=== PATIENT | female | born 1965 | race Native Hawaiian/Other Pacific Islander ===

== ENCOUNTER 2021-05-01 12:19 | Outpatient (CLI) | payer OTHER | END 2021-05-01 21:49 | disposition home or self-care (01) | LOC: RAD 12:19 | PROVIDERS: ATTEND Nurse Practitioner Family | DX: R05 Cough (principal) ==

== ENCOUNTER 2021-05-03 09:53 | Inpatient (IN) | payer OTHER ==
[~2021-05-03] VITALS: Ht 170.2 cm; Wt 80.4 kg
[2021-05-03 10:16] VITALS: BP 89/51; TEMP 99.7
[2021-05-03 11:32] LABS: PLATELET COUNT 177 K/uL (152-353)
[2021-05-03 11:39] LABS: POTASSIUM 3.2 mmol/L (3.6-5.2)
[2021-05-04 00:10] VITALS: BP 95/56
[2021-05-04 02:43] VITALS: BP 145/80; TEMP 98.7
[2021-05-04 05:33] LABS: PLATELET COUNT 177 K/uL (152-353)
[2021-05-04 05:41] LABS: POTASSIUM 3.8 mmol/L (3.6-5.2)
[2021-05-04 08:00] VITALS: BP 142/86
[2021-05-04 12:00] VITALS: BP 142/92
[2021-05-04 16:00] VITALS: BP 151/92
[2021-05-04 20:00] VITALS: BP 104/65; TEMP 97.4
[2021-05-05] VITALS (11 sets, daily range): BP systolic 90–133; BP diastolic 51–66; TEMP 97.1–98.4; Ht 170.2 cm; Wt 80.4 kg
[2021-05-05 05:00] LABS: PLATELET COUNT 171 K/uL (152-353)
[2021-05-05 05:17] LABS: POTASSIUM 3.9 mmol/L (3.6-5.2)
[2021-05-06] VITALS (10 sets, daily range): BP systolic 85–120; BP diastolic 46–74; TEMP 97.7–98.3
[2021-05-06 07:56] LABS: PLATELET COUNT 220 K/uL (152-353)
[2021-05-06 08:28] LABS: POTASSIUM 4.3 mmol/L (3.6-5.2)
[2021-05-07] VITALS: BP 108/54; TEMP 98.3
[2021-05-07 04:00] VITALS: BP 107/49; TEMP 98.1
[2021-05-07 05:19] LABS: PLATELET COUNT 197 K/uL (152-353)
[2021-05-07 05:44] LABS: POTASSIUM 3.8 mmol/L (3.6-5.2)
[2021-05-07 08:00] VITALS: BP 107/41; TEMP 97.7
[2021-05-07 12:00] VITALS: BP 124/70; TEMP 97.7
[2021-05-07 16:00] VITALS: BP 117/63; TEMP 97.6
[2021-05-07 20:00] VITALS: BP 108/66; TEMP 98.4
[2021-05-08] VITALS: BP 113/65; TEMP 98.1
[2021-05-08 04:00] VITALS: BP 108/54; TEMP 98.2
[2021-05-08 08:00] VITALS: BP 106/62; TEMP 98.3
[2021-05-08 12:00] VITALS: BP 99/56; TEMP 98.3
[2021-05-08 16:00] VITALS: BP 104/55; TEMP 98.7
[2021-05-08 20:00] VITALS: BP 100/72; TEMP 97.6
[2021-05-09 00:10] VITALS: BP 101/51; TEMP 100.4
[2021-05-09 04:00] VITALS: BP 107/56; TEMP 98.7
[2021-05-09 05:56] LABS: PLATELET COUNT 162 K/uL (152-353)
[2021-05-09 06:19] LABS: POTASSIUM 3.4 mmol/L (3.6-5.2)
[2021-05-09 08:00] VITALS: BP 115/63; TEMP 98.9
[2021-05-09 12:00] VITALS: BP 117/56; TEMP 97.8
[2021-05-09 16:00] VITALS: BP 116/61; TEMP 98.3
[2021-05-09 20:00] VITALS: BP 113/62; TEMP 99
[2021-05-10] VITALS (7 sets, daily range): BP systolic 87–141; BP diastolic 44–78; TEMP 97.7–98.9
[2021-05-10 06:32] LABS: PLATELET COUNT 95 K/uL (152-353)
[2021-05-10 06:50] LABS: POTASSIUM 3.6 mmol/L (3.6-5.2)
[2021-05-11 04:23] VITALS: BP 103/59; TEMP 98.1
[2021-05-11 04:44] LABS: PLATELET COUNT 96 K/uL (152-353)
[2021-05-11 08:00] VITALS: BP 99/64; TEMP 98
[2021-05-11 12:00] VITALS: BP 101/67; TEMP 99.5
[2021-05-11 16:00] VITALS: BP 100/55; TEMP 98.1
[2021-05-12 08:18] LABS: PLATELET COUNT 160 K/uL (152-353)
[2021-05-12 08:39] LABS: POTASSIUM 4.2 mmol/L (3.6-5.2)
[2021-05-12 20:00] VITALS: BP 121/58; TEMP 98
[2021-05-13 04:52] LABS: POTASSIUM 4.5 mmol/L (3.6-5.2)
[2021-05-13 07:06] LABS: PLATELET COUNT 138 K/uL (152-353)
[2021-05-13 08:00] VITALS: BP 123/57; TEMP 97.6
[2021-05-13 20:00] VITALS: BP 134/59; TEMP 98.2
[2021-05-14] VITALS: BP 106/47; TEMP 97.7
[2021-05-14 06:09] LABS: POTASSIUM 4.7 mmol/L (3.6-5.2)
[2021-05-14 06:17] LABS: PLATELET COUNT 105 K/uL (152-353)
[2021-05-14 08:00] VITALS: BP 118/61; TEMP 98.1
[2021-05-14 20:00] VITALS: BP 121/63; TEMP 98.8
[2021-05-15 06:23] LABS: PLATELET COUNT 77 K/uL (152-353)
[2021-05-15 08:00] VITALS: BP 115/51; TEMP 98.2
[2021-05-15 12:00] VITALS: BP 128/75; TEMP 99.4
[2021-05-15 16:00] VITALS: BP 132/67; TEMP 97.7
[2021-05-15 20:00] VITALS: BP 120/67; TEMP 98.1
[2021-05-16 00:22] VITALS: BP 123/71; TEMP 98.4
[2021-05-16 04:29] VITALS: BP 109/64; TEMP 98.2
[2021-05-16 08:00] VITALS: BP 123/78; TEMP 98.2
[2021-05-16 12:00] VITALS: BP 112/67; TEMP 97.8
[2021-05-16 16:00] VITALS: BP 133/71; TEMP 98.2
[2021-05-16 20:00] VITALS: BP 104/67; TEMP 98.4
[2021-05-17 08:00] VITALS: BP 110/72; TEMP 98.4
[2021-05-17 12:00] VITALS: BP 117/74; TEMP 97.5
[2021-05-17 16:00] VITALS: BP 105/65; TEMP 97.9
[2021-05-17 17:10] LABS: PLATELET COUNT 97 K/uL (152-353)
[2021-05-17 17:32] LABS: POTASSIUM 4.9 mmol/L (3.6-5.2)
[2021-05-17 20:00] VITALS: BP 92/56; TEMP 97.5
[2021-05-18] VITALS: BP 107/56; TEMP 97.8
[2021-05-18 04:00] VITALS: BP 110/65; TEMP 97.8
[2021-05-18 08:00] VITALS: BP 106/70; TEMP 97.5
[2021-05-18 12:00] VITALS: BP 108/64; TEMP 97.4
[2021-05-18 13:31] LABS: POTASSIUM 4.2 mmol/L (3.6-5.2)
[2021-05-18 14:17] LABS: PLATELET COUNT 72 K/uL (152-353)
[2021-05-18 16:00] VITALS: BP 107/67; TEMP 97.9
[2021-05-18 20:00] VITALS: BP 95/54; TEMP 97.5
[2021-05-19] VITALS (7 sets, daily range): BP systolic 93–116; BP diastolic 45–58; TEMP 97.5–98.3
[2021-05-19 05:03] LABS: POTASSIUM 4.1 mmol/L (3.6-5.2)
[2021-05-19 05:17] LABS: PLATELET COUNT 117 K/uL (152-353)
[2021-05-20 04:00] VITALS: BP 98/56; TEMP 97.7
[2021-05-20 08:00] VITALS: BP 103/55; TEMP 97.5
[2021-05-20 11:21] VITALS: BP 103/55; TEMP 97.5
[2021-05-20 12:00] VITALS: BP 119/67; TEMP 97.4
[2021-05-20 12:42] LABS: PLATELET COUNT 153 K/uL (152-353)
[2021-05-20 12:56] LABS: POTASSIUM 3.9 mmol/L (3.6-5.2)
[2021-05-20 16:00] VITALS: BP 102/62; TEMP 97.5
[2021-05-20 20:00] VITALS: BP 113/69; TEMP 98.7
[2021-05-21] VITALS: BP 109/65; TEMP 99.1
[2021-05-21 04:28] VITALS: BP 156/78; TEMP 98.4
[2021-05-21 05:13] LABS: POTASSIUM 3.5 mmol/L (3.6-5.2)
[2021-05-21 05:18] LABS: PLATELET COUNT 136 K/uL (152-353)
[2021-05-21 08:00] VITALS: BP 104/60; TEMP 99.4
[2021-05-21 12:00] VITALS: BP 110/71; TEMP 99.1
[2021-05-21 16:00] VITALS: BP 100/64; TEMP 98.8
[2021-05-21 20:00] VITALS: BP 99/55; TEMP 98.6
[2021-05-22 04:00] VITALS: BP 106/65; TEMP 96.4
[2021-05-22 06:39] LABS: PLATELET COUNT 185 K/uL (152-353)
[2021-05-22 08:00] VITALS: BP 105/68; TEMP 97.5
[2021-05-22 12:00] VITALS: BP 115/61; TEMP 97.5
[2021-05-22 16:00] VITALS: BP 112/64; TEMP 97.8
[2021-05-22 20:00] VITALS: BP 110/61; TEMP 98.8
[2021-05-23] VITALS (7 sets, daily range): BP systolic 98–166; BP diastolic 56–94; TEMP 97.1–98.9
[2021-05-23 05:48] LABS: PLATELET COUNT 194 K/uL (152-353)
[2021-05-23 05:59] LABS: POTASSIUM 3.8 mmol/L (3.6-5.2)
[2021-05-24 03:47] VITALS: BP 170/90; TEMP 98.3
[2021-05-24 04:40] LABS: PLATELET COUNT 160 K/uL (152-353)
[2021-05-24 05:19] LABS: POTASSIUM 4.1 mmol/L (3.6-5.2)
[2021-05-24 08:00] VITALS: BP 105/70; TEMP 97.6
[2021-05-24 12:00] VITALS: BP 115/73; TEMP 97.8
[2021-05-24 16:00] VITALS: BP 115/68; TEMP 97.3
[2021-05-24 20:30] VITALS: BP 111/54; TEMP 96.5
[2021-05-25 00:06] VITALS: BP 110/64; TEMP 96.8
[2021-05-25 04:09] VITALS: BP 118/64; TEMP 96.5
[2021-05-25 05:19] LABS: PLATELET COUNT 150 K/uL (152-353)
[2021-05-25 05:31] LABS: POTASSIUM 3.4 mmol/L (3.6-5.2)
[2021-05-25 08:00] VITALS: BP 111/58; TEMP 98.6
[2021-05-26] VITALS (13 sets, daily range): BP systolic 114–162; BP diastolic 64–90; TEMP 98–98.4
[2021-05-26 05:22] LABS: PLATELET COUNT 169 K/uL (152-353)
[2021-05-26 05:29] LABS: POTASSIUM 4.5 mmol/L (3.6-5.2)
[2021-05-27 00:06] VITALS: TEMP 97.9
[2021-05-27 05:09] LABS: PLATELET COUNT 166 K/uL (152-353)
[2021-05-27 05:40] LABS: POTASSIUM 4.4 mmol/L (3.6-5.2)
[2021-05-27 19:48] VITALS: TEMP 98.2
[2021-05-28] VITALS: TEMP 98.1
[2021-05-28 04:00] VITALS: TEMP 98
[2021-05-28 04:28] LABS: PLATELET COUNT 156 K/uL (152-353)
[2021-05-28 04:54] LABS: POTASSIUM 4.1 mmol/L (3.6-5.2)
[2021-05-28 20:00] VITALS: TEMP 97.7
[2021-05-29] VITALS: TEMP 98.9
[2021-05-29 04:22] LABS: PLATELET COUNT 173 K/uL (152-353)
[2021-05-29 04:45] LABS: POTASSIUM 4.5 mmol/L (3.6-5.2)
[2021-05-29 08:00] VITALS: TEMP 98
[2021-05-29 12:00] VITALS: TEMP 97.9
[2021-05-29 16:00] VITALS: TEMP 97.2
[2021-05-29 20:00] VITALS: TEMP 94.3
[2021-05-30] VITALS: TEMP 98.1
[2021-05-30 03:58] LABS: PLATELET COUNT 177 K/uL (152-353)
[2021-05-30 04:00] VITALS: TEMP 96.9
[2021-05-30 04:11] LABS: POTASSIUM 4.6 mmol/L (3.6-5.2)
[2021-05-30 20:00] VITALS: TEMP 98.7
[2021-05-31] VITALS (13 sets, daily range): BP systolic 116–193; BP diastolic 73–96; TEMP 97.7–98.6
[2021-05-31 06:48] LABS: PLATELET COUNT 96 K/uL (152-353)
[2021-05-31 07:02] LABS: POTASSIUM 4.8 mmol/L (3.6-5.2)
[2021-06-01] VITALS (15 sets, daily range): BP systolic 114–171; BP diastolic 69–93; TEMP 96.6–97.9
[2021-06-01 08:58] LABS: POTASSIUM 5.2 mmol/L (3.6-5.2)
[2021-06-01 12:32] LABS: PLATELET COUNT 73 K/uL (152-353)
[2021-06-02] VITALS: TEMP 94.3
[2021-06-02 04:00] VITALS: TEMP 96.7
[2021-06-02 05:02] LABS: PLATELET COUNT 54 K/uL (152-353)
[2021-06-02 08:00] VITALS: TEMP 96.7
[2021-06-02 08:26] LABS: POTASSIUM 6.1 mmol/L (3.6-5.2)
[2021-06-02 16:00] VITALS: TEMP 98
[2021-06-02 20:37] LABS: PLATELET COUNT 55 K/uL (152-353)
[2021-06-03 05:19] LABS: PLATELET COUNT 29 K/uL (152-353)
[2021-06-03 05:33] LABS: POTASSIUM 4.7 mmol/L (3.6-5.2)
== END 2021-06-03 16:45 | disposition expired | DRG 177 ==
LOC: ED 09:53 → MED/SURG 05-04 14:00 → ICU 05-11 17:07 → MED/SURG 05-12 15:30 → ICU 05-25 09:20
PROVIDERS: Emergency Medicine Emergency Medical Services; ADMIT Family Medicine; ATTEND Family Medicine
PROC: 05HM33Z Insertion of Infusion Device into Right Internal Jugular Vein, Percutaneous Approach (ICD-10-PCS; principal; 2021-05-04)
PROC: B543ZZA Ultrasonography of Right Jugular Veins, Guidance (ICD-10-PCS; 2021-05-04)
PROC: 5A1D70Z Performance of Urinary Filtration, Intermittent, Less than 6 Hours Per Day (ICD-10-PCS; 2021-06-02)
DX: U07.1 COVID-19 (principal); J12.82 Pneumonia due to coronavirus disease 2019; J96.01 Acute respiratory failure with hypoxia; E43 Unspecified severe protein-calorie malnutrition; J44.0 Chronic obstructive pulmonary disease with (acute) lower respiratory infection; J44.1 Chronic obstructive pulmonary disease with (acute) exacerbation; E87.1 Hypo-osmolality and hyponatremia; N17.8 Other acute kidney failure; E87.4 Mixed disorder of acid-base balance; D72.828 Other elevated white blood cell count; E88.09 Other disorders of plasma-protein metabolism, not elsewhere classified; E83.51 Hypocalcemia; F41.8 Other specified anxiety disorders; R00.1 Bradycardia, unspecified; Z72.0 Tobacco use; D64.89 Other specified anemias; D72.818 Other decreased white blood cell count; R74.8 Abnormal levels of other serum enzymes; E87.5 Hyperkalemia
CPT/HCPCS: 36415; 36571; 36600; 80053; 80170; 80202; 82728; 82805; 83605; 83735; 83880; 84100; 84443; 85007; 85027; 85379; 86140; 86850; 86900; 86901; 86922; 87040; 87088; 87635; 93005; 94660; 94664; 94667; 94668; 94760; 96360; 96365; 96375; 99284; J0456; J0692; J1100; J1200; J1265; J1450; J1580; J1650; J1885; J1940; J1956; J2060; J2185; J2270; J2405; J2720; J2930; J3370; J3411; J3490; J7060; P9016; P9017; Q0177; Q9963; U0003